=== PATIENT | female | born 1965 | race American Indian/Alaskan Native ===

== ENCOUNTER 2018-10-17 20:44 | Emergency (ER) | payer SELFPAY ==
[2018-10-17 21:04] VITALS: BP 131/97
[2018-10-17] MEDS ORDERED: ZOFRAN ODT PO ONE (22:21)
[2018-10-17] MEDS ORDERED: IBUPROFEN PO ONE (22:22)
[2018-10-17 22:40] LABS: Basophils % (Auto) 0.4 % (0.0-1.8); Eosinophils # (Auto) 0.1 K/mm3 (0.0-0.4); Eosinophils % (Auto) 0.8 % (0.0-4.3); Hematocrit 38.4 % (30.3-42.9); Hemoglobin 12.9 gm/dl (10.1-14.3); Lymphocytes # (Auto) 3.7 K/mm3 (1.2-5.4); Lymphocytes % (Auto) 39.9 % (13.4-35.0); Mean Corpuscular HGB Conc 34 % (30-34); Mean Corpuscular Volume 91 fl (79-97); Monocytes # (Auto) 0.5 K/mm3 (0.0-0.8); Monocytes % (Auto) 5.5 % (0.0-7.3); Platelet Count 287 K/mm3 (140-440); Red Cell Distribution Width 14.7 % (13.2-15.2)
--- NOTE | 2018-10-17 22:52 | Emergency Department Report ---
ED Chest Pain HPI - General Chief Complaint: Chest Pain Stated Complaint: CHEST PAIN Time Seen by Provider: 10/17/18 22:18 Source: patient Mode of arrival: Ambulatory Limitations: No Limitations - History of Present Illness Initial Comments: This is a 53-year-old female with history of asthma hypertension and questionable lung mass and presents for chest pain cough shortness of breath body aches intermittent nausea and vomiting times one month worsening over the last week presenting work patient is a [id number] smoker occasional EtOH denies chest pain or shortness of breath at this time last vomiting was yesterday describes pain as right lateral substernal radiating to back Pain is exacerbated by deep breathing pain is not reproducible to touch patient states that her blood pressure medicines for the last month. MD Complaint: chest pain Onset/Timin -: month(s) Onset: during rest, during exertion Pain Location: right chest Pain Radiation: back Severity: moderate Severity scale (0 -10): 6 Quality: sharp Consistency: intermittent Improves With: rest Worsens With: exertion, movement, other (coughing ) Context: recent illness (URI symptoms / seasonal allergies ) re: denies: nausea, vomting Other Symptoms: cough Treatments Prior to Arrival: none Aspirin use within the Past 7 Days: (0) No - Related Data On Oral Contraceptives: No Previous Rx's Medication Instructions Recorded Last Taken Type ALBUTEROL Inhaler(NF) [VENTOLIN 2 puff IH Q4H PRN #1 inha 10/18/18 Unknown Rx Inhaler(NF)] Naproxen 500 mg PO BID PRN #30 tablet 10/18/18 Unknown Rx Nitrofurantoin Monohyd/M-Cryst 100 mg PO BID 7 Days #14 capsule 10/18/18 Unknown Rx [Macrobid 100 mg Capsule] amLODIPine [Norvasc] 5 mg PO DAILY #30 tab 10/18/18 Unknown Rx Allergies Allergy/AdvReac Type Severity Reaction Status Date / Time Sulfa (Sulfonamide Allergy Rash Verified 10/17/18 22:31 Antibiotics) Heart Score - HEART Score History: Slightly suspicious EKG: Non-specific Age: 45-65 Risk factors: 1-2 risk factors Troponin: < normal limit HEART Score: 3 ED Review of Systems ROS: Stated complaint: CHEST PAIN Other details as noted in HPI Constitutional: denies: chills, fever Eyes: denies: eye pain, eye discharge, vision change ENT: denies: ear pain, throat pain Respiratory: cough, shortness of breath, wheezing Cardiovascular: chest pain Endocrine: no symptoms reported Gastrointestinal: denies: abdominal pain, nausea, diarrhea Genitourinary: denies: urgency, dysuria, discharge Musculoskeletal: back pain. denies: joint swelling, arthralgia Skin: denies: rash, lesions Neurological: denies: headache, weakness, paresthesias Psychiatric: denies: anxiety, depression Hematological/Lymphatic: denies: easy bleeding, easy bruising ED Past Medical Hx - Past Medical History Hx Hypertension: Yes Hx Psychiatric Treatment: Yes (Bipolar, Depression,) Hx Asthma: Yes Additional medical history: PTSD, - Surgical History Past Surgical History?: Yes Additional Surgical History: Tubal. left oophorectomy - Social History Smoking Status: Heavy Tobacco Smoker Substance Use Type: None, Alcohol - Medications Home Medications: Home Medications Medication Instructions Recorded Confirmed Last Taken Type ALBUTEROL Inhaler(NF) [VENTOLIN 2 puff IH Q4H PRN #1 inha 10/18/18 Unknown Rx Inhaler(NF)] Naproxen 500 mg PO BID PRN #30 tablet 10/18/18 Unknown Rx Nitrofurantoin Monohyd/M-Cryst 100 mg PO BID 7 Days #14 capsule 10/18/18 Unknown Rx [Macrobid 100 mg Capsule] amLODIPine [Norvasc] 5 mg PO DAILY #30 tab 10/18/18 Unknown Rx ED Physical Exam - General Limitations: No Limitations General appearance: alert, in no apparent distress - Head Head exam: Present: atraumatic, normocephalic - Eye Eye exam: Present: normal appearance, PERRL, EOMI Pupils: Present: normal accommodation - ENT ENT exam: Present: normal orophraynx, mucous membranes moist, TM's normal bilaterally, normal external ear exam - Neck Neck exam: Present: normal inspection, full ROM. Absent: tenderness, meningismus, lymphadenopathy, thyromegaly - Respiratory Respiratory exam: Present: normal lung sounds bilaterally. Absent: respiratory distress, wheezes, stridor, chest wall tenderness, prolonged expiratory - Cardiovascular Cardiovascular Exam: Present: regular rate, normal rhythm. Absent: systolic murmur, diastolic murmur, rubs, gallop - GI/Abdominal GI/Abdominal exam: Present: soft, normal bowel sounds. Absent: distended, tenderness, bruit, hernia - Rectal Rectal exam: Present: deferred - Extremities Exam Extremities exam: Present: normal inspection, full ROM, normal capillary refill. Absent: tenderness, pedal edema, joint swelling, calf tenderness - Back Exam Back exam: Present: normal inspection, full ROM. Absent: tenderness, CVA tenderness (R), CVA tenderness (L), muscle spasm, paraspinal tenderness, vertebr al tenderness, rash noted - Neurological Exam Neurological exam: Present: alert, oriented X3, CN II-XII intact, normal gait, reflexes normal - Psychiatric Psychiatric exam: Present: normal affect, normal mood - Skin Skin exam: Present: warm, dry, intact, normal color. Absent: rash ED Course Vital Signs 10/17/18 10/17/18 20:56 22:30 Temperature 98.5 F Pulse Rate 72 Respiratory 16 18 Rate Blood Pressure 131/97 O2 Sat by Pulse 99 Oximetry CARROLL score - Carroll Score Age > 65: (0) No Aspirin use within the Past 7 Days: (0) No 3 or more CAD Risk Factors: (1) Yes 2 or more Angina events in past 24 hrs: (0) No Known CAD with more than 50% Stenosis: (0) No Elevated Cardiac Markers: (0) No ST Deviation Greater than 0.5mm: (0) No CARROLL Score: 1 ED Medical Decision Making - Lab Data Result diagrams: 10/17/18 22:26 10/17/18 22:26 - EKG Data EKG shows normal: sinus rhythm Rate: normal - EKG Data When compared to previous EKG there are: previous EKG unavailable Interpretation: normal EKG (ekg interp by ed attending ) - Radiology Data Radiology results: report reviewed, image reviewed Findings [address] [address] XRay Report Signed Patient: NICOLASA ROTHMAN MR#: [id number] : 1965 Acct:[id number] Age/Sex: 53 / F ADM Date: 10/17/18 Loc: ED Attending Dr: Ordering Physician: POLI CUI MD Date of Service: 10/17/18 Procedure(s): XR chest routine 2V Accession Number(s): [id number] cc: POLI CUI MD Fluoro Time In Minutes: FINAL REPORT PROCEDURE: XR CHEST ROUTINE 2V TECHNIQUE: PA and lateral views of the chest were obtained. HISTORY: chest pain COMPARISON: No prior studies are available for comparison. FINDINGS: The heart is mildly diffusely enlarged. Pulmonary vasculature is not distended. No evidence of pulmonary edema or pleural effusion. No infiltrates or masses are seen. No acute bony abnormalities are identified. IMPRESSION: Mild cardiomegaly otherwise negative exam. Transcribed By: DFN Dictated By: HÉCTOR GARZA MD Electronically Authenticated By: HÉCTOR GARZA MD Signed Date/Time: 10/17/18 9321 - Medical Decision Making CXR: no infiltrates no opacities , k: 3.3, trop: <0.01, LHeart Score: 3, CARROLL score: 1, UA: pos for WBC, Leuk, no rbc, plan rocephin IM, dc to home with macrobid, refill albuterol inhaler prn, bp meds, naproxen pain, follow up with pcp in 2-3 days pt verbalized agreement and understanding of same. pt advises pain is resolved there is no hematuria no fever no chills no n/v at this time, pt for dc to self in stable condition at this time. Critical care attestation.: If time is entered above; I have spent that time in minutes in the direct care of this critically ill patient, excluding procedure time. ED Disposition Clinical Impression: URI, acute, Medication refill, Chest pain, atypical UTI (urinary tract infection) Qualifiers: Urinary tract infection type: acute cystitis Hematuria presence: without hematuria Qualified Code(s): N30.00 - Acute cystitis without hematuria Disposition: DC-01 TO HOME OR SELFCARE Is pt being admited?: No Does the pt Need Aspirin: No Condition: Stable Instructions: Urinary Tract Infection in Women (ED), Chest Pain (ED) Prescriptions: ALBUTEROL Inhaler(NF) [VENTOLIN Inhaler(NF)] 2 puff IH Q4H PRN #1 inha PRN Reason: shortness of breath wheezing amLODIPine [Norvasc] 5 mg PO DAILY #30 tab Naproxen 500 mg PO BID PRN #30 tablet PRN Reason: Pain , Severe (7-10) Nitrofurantoin Monohyd/M-Cryst [Macrobid 100 mg Capsule] 100 mg PO BID 7 Days #14 capsule Referrals: [facility] [Outside] - 3-5 Days Forms: Work/School Release Form(ED) Time of Disposition: 00:11
[2018-10-17 22:59] LABS: Alanine Aminotransferase 11 units/L (7-56); Albumin 4.3 g/dL (3.9-5); BUN/Creatinine Ratio 12; Blood Urea Nitrogen 12 mg/dL (7-17); Calcium 9.2 mg/dL (8.4-10.2); Hemolysis Index 5
--- NOTE | 2018-10-17 23:06 | XRay Report ---
FINAL REPORT PROCEDURE: XR CHEST ROUTINE 2V TECHNIQUE: PA and lateral views of the chest were obtained. HISTORY: chest pain COMPARISON: No prior studies are available for comparison. FINDINGS: The heart is mildly diffusely enlarged. Pulmonary vasculature is not distended. No evidence of pulmon clara edema or pleural effusion. No infiltrates or masses are seen. No acute bony abnormalities are charles ntified. IMPRESSION: Mild cardiomegaly otherwise negative exam.
[2018-10-17 23:35] LABS: Bilirubin,Urine NEG (Negative); Blood,Urine SM (Negative); Color,Urine Yellow (Yellow); Hyaline Casts,Urine 1 /LPF; Protein,Urine <15 mg/dL mg/dL (Negative); Urobilinogen,Urine < 2.0 mg/dL (<2.0)
[2018-10-17] MEDS ORDERED: K-DUR PO ONE (23:39)
[2018-10-17] MEDS ORDERED: XYLOCAINE 1% MPF 5 mL INFILTRATI ONE (23:40)
[2018-10-17] MEDS ORDERED: ROCEPHIN IM ONE (23:40)
== END 2018-10-18 00:22 | disposition home or self-care (01) ==
LOC: ED 20:44
DX: J06.9 Acute upper respiratory infection, unspecified (principal); R07.89 Other chest pain; I10 Essential (primary) hypertension; F31.9 Bipolar disorder, unspecified; J45.909 Unspecified asthma, uncomplicated; F43.10 Post-traumatic stress disorder, unspecified; F17.200 Nicotine dependence, unspecified, uncomplicated; Z98.51 Tubal ligation status; Z76.0 Encounter for issue of repeat prescription; Z88.2 Allergy status to sulfonamides; Z90.79 Acquired absence of other genital organ(s)
CPT/HCPCS: 36415; 71046; 80053; 81001; 84484; 85025; 93005; 93010; 96372; 99284; J0696; Q0162